=== PATIENT | female | born 1950 | race Caucasian/White ===

== ENCOUNTER → 2017-03-08 | Outpatient (CLI) | payer OTHER, MEDICAID ==
[~2017-03-08] MED LIST: ACETAZOLAMIDE250 M1 PO; ARICEPT 5 MG TAB5 MG PO; AZITHROMYCIN 2250 MG PO; CEFUROXIME250 MG PO; DUONEB 2.5-0.5 M3 ML INH; FOSINOPRIL 10 M10 M1 PO; HYDROCHLOROTH12.5 M1 PO; HYDROCODONE-AP1 EAC6 PO; HYDROXYCHLOROQ200 M1 PO; NITROFURANTOIN100 MG PO; OMEPRAZOLE20 M2 PO; PREDNISONE 10 M10 MG PO; PREDNISONE 20 M20 MG PO; PROAIR HFA8.5 GM INH; PROZAC20 MG PO; RISPERDAL 1 MG T1 MG PO; SINGULAIR 10 MG10 M1 PO
--- NOTE | 2017-03-15 12:51 | SLEEP ---
[address] [address] SLEEP STUDY REPORT Name: CAREY NELSON Room: [facility]#: [id number] Admission: 03/08/17 Attend Phys: Josh Saeed MD Discharge: Date of : 46 Report #: [id number] THIS REPORT FOR: //name// CC: BERTHA Saeed This study has been reviewed in its entirety by a board certified sleep specialist DATE OF SERVICE: 03/12/2017 REFERRING PHYSICIAN: Dr. Josh Saeed. INDICATION: The patient with known obstructive sleep apnea on the sleep study done on 12/10/2016 with apnea-hypopnea index of 31.6 and oxygen saturation ____. Also, the patient has history of COPD, chronic respiratory failure, on oxygen. TYPE OF STUDY: CPAP/BiPAP titration. METHOD: The following parameters were monitored: Frontal, central and occipital EEG; electro-oculogram; submentalis EMG; nasal and oral airflow; anterior tibialis EMG; body position and electrocardiogram. Additionally, thoracic and abdominal movements were recorded by inductance plethysmography. Oxygen saturation was monitored using pulse oximeter. The tracing was scored using 30-second epochs. Hypopneas were scored per the [employer] definition using the 4% desaturation criteria. SLEEP SUMMARY: Total recording time 445.4 minutes. Total sleep time 348.5 minutes. Sleep efficiency 78.2%. This was a PAP titration study. Initially, the patient was placed on CPAP, the patient did not tolerate the CPAP, she was changed to BiPAP and titrated on BiPAP pressure, slowly increasing between 8/5 cm of water to a final pressure of 19/12 cm of water. At this level of 19/12 cm of water, the patient slept for 153 minutes, and lateral REM sleep was captured at this level for 55 minutes. The apnea-hypopnea index was 7.2. The lowest O2 saturation recorded was 84%. It was noted that the patient, during the study, had low O2 saturation and oxygen was added during the titration to maintain the O2 saturation 90% and above. CARDIAC DATA: The average heart rate was 61.9 beats per minute, the highest rate was 86 beats per minute. PLMS STATISTICS: The PLMS index was 36 per hour; however, the PLMS arousal index was 2.6 [place] [address] SLEEP STUDY REPORT Name: CAREY NELSON Room: [facility]#: [id number] Admission: 03/08/17 Attend Phys: Josh Saeed MD Discharge: Date of : 46 Report #: [id number] RECOMMENDATIONS: 1. Trial of BiPAP therapy at a pressure of 19/12 cm of water with 3 L of oxygen let through the BiPAP machine during sleep. 2. Close clinical followup and data download. 3. Avoid sedatives, hypnotics, alcohol close to bedtime. <ELECTRONICALLY SIGNED> By: Itz Marion MD 03/15/17 1251 0920 [id number] Marion MD /nt
--- NOTE | 2017-03-31 07:16 | SLEEP ---
[address] [address] SLEEP STUDY REPORT Name: CAREY NELSON Room: [facility]#: [id number] Admission: 03/08/17 Attend Phys: Josh Saeed MD Discharge: Date of : 46 Report #: [id number] THIS REPORT FOR: //name// CC: BERTHA Saeed MD This study has been reviewed in its entirety by a board certified sleep specialist DATE OF SERVICE: 03/08/2017 ATTENDING PHYSICIAN: Josh Saeed MD. TYPE OF STUDY: Polysomnography. The patient is a 66-year-old female with a history of COPD. She is chronically on oxygen 3 liters nasal cannula, and the patient has difficulty falling in trying to sleep, evaluate for obstructive sleep apnea. Overnight polysomnography was performed. Total sleep time was 5 hours and 48 minutes. Sleep efficiency was 78%. N1 was 0. N2 was 83 minutes and then N3 was 83 minutes and then REM sleep was 150 minutes. The patient had 5 apneas and 65 hypopneas, 70 events were noted. Apnea-hypopnea index was 12 per hour sleep. No Shiv-Sarah respirations were noted. Mild O2 desaturation was noted. The average O2 was 90% on 3 liters. Pulse rate was in the 60s, and there were 209 PLMS. The PLMS arousal index was 2.6 per hour, which was within normal limits. Abnormalities suggest mild obstructive sleep apnea. This study appears somewhat improved from her previous study at [place] dated 12/10/2016. The patient had a higher apnea-hypopnea index at that time. Would consider empiric trial of 8 cm of CPAP with a full face mask with oxygen 3 liters bled into the system. Then, data download and follow up in a month after the patient on CPAP would be indicated. Would avoid alcohol and heavy sedation and would avoid driving while feeling drowsy. The patient already is on oxygen at home. <ELECTRONICALLY SIGNED> By: Georgia Singletary MD 03/31/17 0716 1023 1051Amartina Sinclair MD /nt
== END ==
LOC: M.SLEEPLAB 01:23
DX: G47.33 Obstructive sleep apnea (adult) (pediatric) (principal)

== ENCOUNTER 2019-08-26 21:35 | Inpatient (IN) | payer MEDICARE, MEDICAID ==
[~2019-08-26] VITALS: Ht 154.9 cm; Wt 92.5 kg
[~2019-08-26 21:35] MED LIST changes: +DENTAGEL56 GM MISCELL; +PEPCID20 MG PO
[2019-08-26 21:37] VITALS: BP 105/78
[2019-08-26] MEDS ORDERED: TYLENOL325 M1 PO (21:40)
[2019-08-26] MEDS ORDERED: ANTACID PO (21:41)
[2019-08-26] MEDS ORDERED: METOPROLOL SUCC50 MG (21:42)
[2019-08-26] MEDS ORDERED: B-12 DOTS500 MCG PO (21:42)
[2019-08-26] MEDS ORDERED: VITAMIN C500 M1 PO (21:43)
[2019-08-26] MEDS ORDERED: ZINC SULFATE220 MG PO (21:43)
[2019-08-26 22:00] LABS: ABSOLUTE EOSINOPHILS 0.2 thou/uL (0.0-0.7); ABSOLUTE LYMPHOCYTES 1.4 thou/uL (0.8-5.3); ABSOLUTE MONOCYTES 0.7 thou/uL (0.0-1.2); ABSOLUTE NEUTROPHILS 5.6 thou/uL (1.6-8.1); BASOPHILS 0.6 %; EOSINOPHILS 2.2 %; LYMPHOCYTES 18.1 %; MCH 21.9 pg (26.0-34.0); MCV 72.9 fL (80.0-100.0); MONOCYTES 8.9 %; MPV 7.4 fl. (7.2-11.1); NUCLEATED RBCS 0 /100WBC; PLATELET COUNT* 270 thou/uL (150-400); POLYS 70.2 %; RBC 3.16 mil/uL (4.20-5.00); RDW-CV 18.7 % (10.5-14.5); WBC 7.9 thou/uL (4.0-11.0)
[2019-08-26 22:02] LABS: HEMOGLOBIN 6.9 gm/dL (12.0-15.0)
[2019-08-26 22:08] LABS: CREATININE 0.9 mg/dL (0.6-1.3); POTASSIUM 4.6 mmol/L (3.5-5.1)
[2019-08-26 22:18] LABS: MAGNESIUM 2.2 mg/dL (1.8-2.4); TOTAL BILIRUBIN 0.2 mg/dL (<0.1-1.0); TOTAL PROTEIN 6.6 g/dL (6.4-8.2)
[2019-08-26 22:31] LABS: BE 5.4 mmol/L (-2 to +3)
[2019-08-26 22:35] LABS: pH 7.271 (7.340-7.450)
[2019-08-26 22:41] LABS: ANISOCYTOSIS 1+
[2019-08-26 22:42] LABS: LARGE PLATELETS OCCASIONAL; PLATELET ESTIMATE ADEQUATE
[2019-08-26 22:43] LABS: MICROCYTES 1+
[2019-08-26 22:44] LABS: HYPOCHROMASIA 1+
[2019-08-26 23:06] LABS: URINE BILIRUBIN NEGATIVE (Negative); URINE BLOOD 2+ (Negative); URINE CLARITY CLOUDY; URINE COLOR YELLOW; URINE GLUCOSE-RANDOM NEGATIVE (Negative); URINE KETONES NEGATIVE (Negative); URINE LEUKOCYTES-REFLEX 3+ (Negative); URINE NITRITE-REFLEX NEGATIVE (Negative); URINE PROTEIN 1+ (Negative); URINE SPECIFIC GRAVITY >= 1.030 (1.005-1.030); URINE UROBILINOGEN 0.2 E.U./dl (0.2-1.0)
[2019-08-26 23:07] LABS: BACTERIA-REFLEX >30 Many /HPF (None Seen); CASTS None Seen /LPF (None Seen); CRYSTALS None Seen /LPF (None Seen); MUCUS 4-6 Moderate strn/LPF (None Seen); SQUAMOUS 0-3 Few /LPF (0-3); URINE WBC-REFLEX >25 Many /HPF (0-5); WBC CLUMPS Moderate (None Seen)
[2019-08-27] VITALS (7 sets, daily range): BP systolic 120–152; BP diastolic 40–76
[2019-08-27 02:43] LABS: % SATURATION 2 % (20-39); IRON 11 ug/dL (50-175)
[2019-08-27 09:10] LABS: BE 2.3 mmol/L (-2 to +3); PO2 82.7 mmHg (75.0-100.0)
[2019-08-27 09:13] LABS: PCO2 82.6 mmHg (35.0-45.0); pH 7.201 (7.340-7.450)
[2019-08-27 09:55] LABS: HEMATOCRIT 25.7 % (37.0-47.0); HEMOGLOBIN 7.7 gm/dL (12.0-15.0)
--- NOTE | 2019-08-27 12:39 | EKG ---
[place] [address] ELECTROCARDIOGRAM REPORT Name: DANIELLENKACAREY Room: [address] ADM IN M.R.#: [id number] Admission: 08/27/19 Attend Phys: Grey Rivera, Discharge: Date of : 46 Date of Service: 08/26/198 Report #: [id number] THIS REPORT FOR: //name// [facility] ED Test Date: 2019-08-26 Test Time: 21:38:08 Pat Name: CAREY NELSON Department: Room: [facility] Gender: F Warpman: MARIA DEL ROSARIO : 1950 Requested By: Amy Stevenson Order Number: [id number] MD: Jan Kemp Measurements Intervals [place] Rate: 54 P: 36 PA: 174 QRS: 37 QRSD: 188 T: 28 QT: 467 QTc: 443 Interpretive Statements Sinus rhythm Baseline artifact Compared to ECG 08/29/2018 10:36:42 Sinus bradycardia no longer present Electronically Signed On 08-27-2019 12:39:51 CDT by Jan Kemp [email or web address] <ELECTRONICALLY SIGNED> By: Jan Kemp MD, FACC 08/27/19 1239 37 37 Jan Kemp MD, [facility] /EPI
[2019-08-28] VITALS: BP 119/41
[2019-08-28 04:00] VITALS: BP 127/53
[2019-08-28 05:10] LABS: HEMATOCRIT 25.6 % (37.0-47.0); MCV 74.2 fL (80.0-100.0); MPV 8.1 fl. (7.2-11.1); RBC 3.45 mil/uL (4.20-5.00); RDW-CV 19.7 % (10.5-14.5); WBC 7.4 thou/uL (4.0-11.0)
[2019-08-28 05:27] LABS: ALBUMIN 3.1 g/dL (3.4-5.0); CALCIUM 8.3 mg/dL (8.5-10.1); MAGNESIUM 2.1 mg/dL (1.8-2.4); POTASSIUM 4.2 mmol/L (3.5-5.1); TOTAL BILIRUBIN 0.4 mg/dL (<0.1-1.0); TOTAL PROTEIN 6.9 g/dL (6.4-8.2)
[2019-08-28 08:15] VITALS: BP 137/49
[2019-08-28 09:56] LABS: BE 6.3 mmol/L (-2 to +3); PO2 85.4 mmHg (75.0-100.0); pH 7.366 (7.340-7.450)
[2019-08-28 12:21] VITALS: BP 121/60
--- NOTE | 2019-08-28 15:06 | 2DMMODE ---
[place] [address] 2 D/M-MODE ECHOCARDIOGRAM Name: CAREY NELSON Room: [address] IN [place]#: [id number] Admission: 08/27/19 Attend Phys: Grey Rivera, Discharge: Date of : 46 Date of Service: 08/28/19 1506 Report #: [id number] THIS REPORT FOR: cc: Marino Byrd MD, Dennis R MD Blick, David R. MD [facility] ~ APPROVED REPORT Study performed: 08/28/2019 11:00:53 EXAM: Comprehensive 2D, Doppler, and color-flow Echocardiogram Patient Location: In-Patient Room #: [facility] Status: routine BSA: 1.90 HR: 57 bpm BP: 127/53 mmHg Rhythm: NSR Other Information Study Quality: Good Indications Congestive Heart Failure 2D Dimensions IVSd: 12.58 (7-11mm) LVOT Diam: 20.85 (18-24mm) LVDd: 56.98 mm PWd: 9.71 (7-11mm) Ascending Ao: 31.71 (22-36mm) LVDs: 31.40 (25-40mm) Aortic Root: 30.16 mm Volumes Left Atrial Volume (Systole) LA ESV Index: 49.60 mL/m2 Aortic Valve AoV Peak Tanmay.: 3.76 m/s AO Peak Gr.: 56.44 mmHg LVOT Max P.99 mmHg AO Mean Gr.: 35.61 mmHg LVOT Mean P.26 mmHg LVOT Max V: 1.66 m/s AO V2 VTI: 89.56 cm LVOT Mean V: 1.04 m/s EFRAIN (VTI): 1.54 cm2 LVOT V1 VTI: 40.48 cm AI [place]: 1.95 m/s2 [place] [address] 2 D/M-MODE ECHOCARDIOGRAM Name: CAREY NELSON Room: [address] [facility].#: [id number] Admission: 08/27/19 Attend Phys: Grey Rivera, Discharge: Date of : 46 Date of Service: 08/28/19 1506 Report #: [id number] AI PHT: 583.01 ms Mitral Valve E/A Ratio: 1.19 MV Decel. Time: 240.35 ms MV E Max Tanmay.: 1.56 m/s MV PHT: 69.70 ms MVA (PHT): 3.16 cm2 TDI E/Lateral E': 12.00 E/Medial E': 19.50 Medial E' Tanmay.: 0.08 m/s Lateral E' Tanmay.: 0.13 m/s Pulmonary Valve PV Peak Tanmay.: 1.18 m/s PV Peak Gr.: 5.56 mmHg Tricuspid Valve RAP Estimate: 5.00 mmHg TR Peak Gr.: 46.11 mmHg RVSP: 51.00 mmHg PA Pressure: 51.00 mmHg Left Ventricle The left ventricle is normal size. There is normal LV segmental wall motion. There is normal left ventricular wall thickness. Left ventricular systolic function is normal. The left ventricular ejection fraction is within the normal range. LVEF is 55-60%. Right Ventricle Right ventricle is dilated. The right ventricular systolic function is normal. Atria Left atrium is severely dilated. Right atrium is dilated. Aortic Valve Aortic valve is calcified. Mild aortic regurgitation. Severe aortic stenosis.. Mitral Valve There is mitral annular calcification. Trace mitral regurgitation. No evidence of mitral valve stenosis. Tricuspid Valve The tricuspid valve is normal in structure. Mild tricuspid regurgitation. estimated pa pressure 50 [place] [address] 2 D/M-MODE ECHOCARDIOGRAM Name: CAREY NELSON Room: [address]#: [id number] Admission: 08/27/19 Attend Phys: Grey Rivera, Discharge: Date of : 46 Date of Service: 08/28/19 1506 Report #: [id number] Pulmonic Valve The pulmonary valve is normal in structure. Trace pulmonic regurgitation. Great Vessels The aortic root is normal in size. IVC is normal in size and collapses >50% with inspiration. Pericardium There is no pericardial effusion. <Conclusion> LVEF is 55-60%. Left atrium is severely dilated. Severe aortic stenosis.. Mild tricuspid regurgitation. estimated pa pressure 50 mm Hg <ELECTRONICALLY SIGNED> By: Kendrick Knox MD, [facility] 08/28/19 1506 1506 1506 Kendrick Knox MD, FACC /INF
[2019-08-28 17:00] VITALS: BP 102/42
--- NOTE | 2019-08-28 17:10 | CON ---
[address] [address] CONSULTATION Name: CAREY NELSON Room: [address] IN M.R.#: [id number] Admission: 08/27/19 Attend Phys: Grey Rivera MD Discharge: Date of : 46 Report #: [id number] THIS REPORT FOR: //name// cc: Marino Byrd MD, Dennis R MD ~ THIS REPORT FOR: //name// CC: Marino Rivera DATE OF SERVICE: 08/28/2019 REQUESTING PHYSICIAN: Has been requested by Dr. Buitrago. INDICATION FOR CONSULTATION: [id number] hypercarbic respiratory failure. HISTORY OF PRESENT ILLNESS: The patient is a 69-year-old female, I have seen her during a previous admission in 2017. The patient has a long history of chronic hypercarbic respiratory failure and has had an acute component at times as well. The patient is a lifetime nonsmoker; however, she has had significant exposure to secondhand smoking and so therefore, there does appear to be an underlying component of COPD. In addition, the patient has a longstanding history of use of narcotics and she is overweight with a body mass index of 39 and has obesity hypoventilation syndrome as well, all of which are contributing to her hypercarbic respiratory failure. Back in 2017, I had a set up a Trilogy for her and had recommended that she use as a prison. The patient now reports that she used that only for a short period of time and did not like it and therefore discontinued use. The patient, however, does remain on oxygen, long-term. At other times, there have been attempts to set up with a BiPAP as well. She has had several sleep studies performed, which are in our records. She was also intolerant to CPAP and therefore set up with a BiPAP of 02/02. Earlier, the patient also says that she was intolerant to BiPAP and did not use it for a long period of time either. The patient is a resident of a long-term care facility. The patient is now admitted yesterday. She is able to provide only a limited history. She does report that she has had a significant increase in shortness of breath. There has been some cough as well. She does not report any increase in sputum production. There is no chest pain. She does not report upper respiratory complaints. She is not describing a runny nose or sore throat to me. There is no swelling of lower extremities. There is no calf pain. The patient does, however, have pain complaints which she reports as being at baseline. This does include a history of joint as well as back pain. The patient did have COVID-19 testing performed upon admission[place] [address] CONSULTATION Name: DANIELLENKACAREY ADRIÁN Room: [address] IN [facility]#: [id number] Admission: 08/27/19 Attend Phys: Grey Rivera MD Discharge: Date of : 46 Report #: [id number] well as PCR for COVID-19 came back negative. The patient is noted to have had significant anemia on admission, with hemoglobin down to 6.9. She has been evaluated by GI as well as Hematology. She has also had a unit of packed RBCs. Hemoglobin is now up to 8.0 with transfusion. The patient is not describing any abdominal complaints, but as above, she is a limited historian. I asked her 12 questions for review of systems, she answered with a negative for all other questions asked for review of systems and review of systems is therefore negative except as above with the limitation again that the patient is providing a limited history. PAST MEDICAL HISTORY: Chronic hypercarbic respiratory failure, the patient's baseline pCO2 is in the range of 56-58, obstructive sleep apnea, several sleep studies are in the records. Apnea-hypopnea index is variable on these studies. It does, however, appear to me that she has fairly significant obstructive sleep apnea, long-term oxygen use. We have previously set a Trilogy as above, the patient did not use prison. The patient is also being set up with BiPAP at one point, which she did not use prison. Obesity hypoventilation syndrome, chronic narcotic use, leading to hypercarbia, COPD secondary to secondhand exposure to cigarette smoke. There is a previous cardiac catheterization in 2019, which is unremarkable. There is a previous echocardiogram from 2017, which shows minor valvular lesions only. Rheumatoid arthritis, gastroesophageal reflux disease, depression, anxiety, kidney stones, hysterectomy, gallbladder surgery, tonsillectomy, right ankle surgery. I do not have any previous pulmonary function tests available. SOCIAL HISTORY: Lifetime nonsmoker; however, has had significant exposure to secondhand smoke. She has been on prescribed narcotics long-term; however, there is no known history of illegal drug use. No known history of heavy alcohol use. She is resident of a long-term care facility. FAMILY HISTORY: There are multiple family members who smoke and the patient previously told me that they has had significant exposure to secondhand smoke. CURRENT MEDICATIONS: List in R&V reviewed. HOME MEDICATIONS: List in R&V reviewed. ALLERGIES: THE PATIENT IS REPORTED TO BE ALLERGIC TO PENICILLIN WELL LEVAQUIN. She tolerates cephalosporins point without any problems. There is documented history of administration of cephalosporins without a reaction. She has received Zosyn in 2017 as well, not known to me as to whether her REPORTED HISTORY TO PENICILLINS is before or after she got Zosyn in 2017. PHYSICAL EXAMINATION: GENERAL: She is fully awake was on BiPAP overnight, now is down to 3 [place] [address] CONSULTATION Name: CAREY NELSON ADRIÁN Room: [address]#: [id number] Admission: 08/27/19 Attend Phys: Grey Rivera MD Discharge: Date of : 46 Report #: [id number] oxygen via nasal cannula. She is oxygenating in the mid 90s. Does not appear to be in any distress. She, however, is able to provide only a limited history. She did answer orientation questions correctly. Her body mass index is elevated to 38.6. VITAL SIGNS: Has a pulse of 60 and a blood pressure of 121/60, her respiratory rate is 16. She is afebrile with a temperature of 36.8. HEENT: Head is normocephalic and atraumatic. She does appear to have a narrow airway. NECK: Does not show raised JVP, asymmetry, mass or lymph nodes. CHEST: Symmetrical expansion on inspection and palpation. On auscultation, however, breath sounds are decreased on the right lung base. Expirations do appear to be prolonged. HEART: Regular. There is a 2-3/6 systolic murmur. ABDOMEN: Soft and nontender. EXTREMITIES: Lower extremities show no edema, no calf tenderness. SKIN: Dry and intact. NEUROLOGICAL: Moves all extremities bilaterally equally and spontaneously with no focal deficit identified. LABORATORY DATA: The patient had a CT of the abdomen and pelvis performed earlier today, reviewed the report. I also reviewed the lower chest films accompanying the CT. There is a partially visualized pleural effusion, which appears to be small in size. It could possibly have some loculations. There may be some atelectasis present as well; however, visualization is partial. The patient has had a chest x-ray performed on admission and today, there is a significant increase in opacification at the right lung base. The patient's arterial blood gases, which are consistent with mgyhh-pi-symgkug hypercarbic respiratory failure with a favorable response to BiPAP therapy are in [facility] reviewed. The patient's CBC as well as chemistries are in [facility], these are reviewed. Coagulation studies, which show D-dimer of only 0.39 in [facility], reviewed. Urinalysis in [facility] reviewed. Serology shows COVID-19 antigen as well as PCR negative. Note that she is on hydroxychloroquine, however. ASSESSMENT AND PLAN: 1. Dykco-ec-tvkpmku hypercarbic and hypoxemic respiratory failure. As I had previously recommended back in 2017, I feel that the patient would benefit from use of a Trilogy device prison. The patient has been intolerant of Trilogy in the past. If the patient is able to tolerate a Trilogy, then I do recommend setting one up before her discharge. The patient would also benefit from a BiPAP; however, I would expect the response to be less favorable then Trilogy. I do not feel that her respiratory failure can be controlled with a CPAP or with CPAP and oxygen alone. At this time, I would go ahead and switch her BiPAP over to average volume, assured pressure support mode, and will continue while asleep and p.r.n. 2. Right lower lobe infiltrate/atelectasis/pleural effusion. See discussion regarding the CT of the abdomen and pelvis as above. I feel that the [address] [address] CONSULTATION Name: CAREY NELSON Room: [address] IN [facility]#: [id number] Admission: 08/27/19 Attend Phys: Grey Rivera MD Discharge: Date of : 46 Report #: [id number] visualization of the right lower zone finding is partial on this CT and therefore, I will go ahead and proceed with a CT of the chest without contrast. At first glance, it appears to me that the pleural effusion is small and the worsening on the x-ray today is due to atelectasis. Therefore, pending further review with CT of the chest, I went ahead and ordered Mucomyst for her. We will reassess once the CT chest is performed. The patient remains on Zithromax as well as ceftriaxone. I also continued these, pending review of CT chest. We will obtain a sputum culture as well as nasal swab for methicillin-resistant Staphylococcus aureus. The patient is tested negative for COVID-19 antigen as well as COVID-19 PCR. The patient is noted to be on hydroxychloroquine, which can lead to a false negative test for COVID but the patient, although a limited historian, is not describing any symptoms consistent with COVID-19. 4. Chronic obstructive pulmonary disease exacerbation. She is a lifetime nonsmoker, but does appear to have a component of COPD. Secondary to secondhand cigarette smoke, we will continue with Solu-Medrol as well as DuoNeb. I added Brovana. In order to prevent bronchospasm with acetylcysteine, I went ahead and ordered an additional dose of Solu-Medrol now as well. 5. Obesity hypoventilation syndrome. This is also contributing to her chronic hypercarbic respiratory failure. Weight loss is strongly recommended. Down the line, the patient is a potential candidate for weight loss surgery. She may, however, need to use a Trilogy device regularly for a while in order to be stabilized enough to have consideration for weight loss surgery down the line. 6. 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 Narcotics are also contributing to her respiratory failure. 7. Murmur. Only minor abnormalities in the valves on previous echocardiogram. A repeat echocardiogram is pending at this time. 5. Gastroesophageal reflux disease/iron deficiency anemia. Dr. Melo is on the case. 6. Deep vein thrombosis prophylaxis. I recommend SCDs while in bed. 7. Mild fluid overload. She is on daily Lasix. We will follow along and watch her fluid status closely. Thanks for this consultation. <ELECTRONICALLY SIGNED> By: Hernando Mueller MD 08/28/19 1710 1302 [id number] Mueller MD /nt
[2019-08-28 20:00] VITALS: BP 115/76
[2019-08-29] VITALS: BP 116/50
[2019-08-29 04:00] VITALS: BP 129/59
[2019-08-29 04:45] LABS: HEMOGLOBIN 7.5 gm/dL (12.0-15.0)
[2019-08-29 04:47] LABS: HEMATOCRIT 24.4 % (37.0-47.0); MCHC 30.9 g/dL (28.0-37.0); MCV 74.2 fL (80.0-100.0); MPV 7.6 fl. (7.2-11.1); NUCLEATED RBCS 0 /100WBC; PLATELET COUNT* 240 thou/uL (150-400); RBC 3.28 mil/uL (4.20-5.00); RDW-CV 19.7 % (10.5-14.5)
[2019-08-29 04:53] LABS: ALBUMIN 2.8 g/dL (3.4-5.0); CALCIUM 8.3 mg/dL (8.5-10.1); CREATININE 0.9 mg/dL (0.6-1.3); MAGNESIUM 2.2 mg/dL (1.8-2.4); POTASSIUM 4.3 mmol/L (3.5-5.1); TOTAL BILIRUBIN 0.2 mg/dL (<0.1-1.0); TOTAL PROTEIN 6.2 g/dL (6.4-8.2)
[2019-08-29 05:46] LABS: ABSOLUTE EOSINOPHILS 0.1 thou/uL (0.0-0.7); ABSOLUTE LYMPHOCYTES 0.6 thou/uL (0.8-5.3); ABSOLUTE MONOCYTES 0.1 thou/uL (0.0-1.2); ABSOLUTE NEUTROPHILS 11.2 thou/uL (1.6-8.1); ANISOCYTOSIS 1+; PLATELET ESTIMATE ADEQUATE
[2019-08-29 05:47] LABS: HYPOCHROMASIA 1+; MICROCYTES 1+; POIKILOCYTOSIS 1+; POLYCHROMASIA Occasional
[2019-08-29 08:00] VITALS: BP 112/42
[2019-08-29 12:00] VITALS: BP 131/53
[2019-08-29 16:00] VITALS: BP 108/42
[2019-08-29 20:00] VITALS: BP 126/49
[2019-08-30 00:55] VITALS: BP 127/61
[2019-08-30 04:23] VITALS: BP 162/61
[2019-08-30 04:28] LABS: HEMATOCRIT 27.6 % (37.0-47.0); HEMOGLOBIN 8.5 gm/dL (12.0-15.0); MCH 22.8 pg (26.0-34.0); MCHC 30.7 g/dL (28.0-37.0); MCV 74.5 fL (80.0-100.0); MPV 7.7 fl. (7.2-11.1); RBC 3.71 mil/uL (4.20-5.00); RDW-CV 19.5 % (10.5-14.5); WBC 16.8 thou/uL (4.0-11.0)
[2019-08-30 04:40] LABS: CALCIUM 8.4 mg/dL (8.5-10.1); MAGNESIUM 2.1 mg/dL (1.8-2.4); POTASSIUM 4.3 mmol/L (3.5-5.1)
[2019-08-30 08:00] VITALS: BP 140/53
[2019-08-30 16:25] VITALS: BP 127/35
[2019-08-30 20:00] VITALS: BP 107/47
[2019-08-31 00:01] VITALS: BP 123/51
[2019-08-31 04:52] LABS: HEMATOCRIT 27.3 % (37.0-47.0); HEMOGLOBIN 8.1 gm/dL (12.0-15.0); MCH 22.6 pg (26.0-34.0); MCHC 29.9 g/dL (28.0-37.0); MCV 75.7 fL (80.0-100.0); MPV 7.9 fl. (7.2-11.1); RBC 3.6 mil/uL (4.20-5.00); RDW-CV 20.3 % (10.5-14.5)
[2019-08-31 04:57] LABS: ANION GAP < 0 mmol/L (7-16); BUN 27 mg/dL (7-18); CALCIUM 8.2 mg/dL (8.5-10.1); CHLORIDE 100 mmol/L (98-107); CO2 40 mmol/L (21-32); GLUCOSE 95 mg/dL (70-99); MAGNESIUM 2.1 mg/dL (1.8-2.4); POTASSIUM 4.3 mmol/L (3.5-5.1); SODIUM 139 mmol/L (136-145)
[2019-08-31 08:00] VITALS: BP 110/44
[2019-08-31] MEDS ORDERED: PREDNISONE 10 M10 MG PO (08:54)
[2019-08-31] MEDS ORDERED: PRINIVIL10 MG PO (08:54)
[2019-08-31] MEDS ORDERED: LEVAQUIN 500 M500 M3 PO (08:54)
[2019-08-31] MEDS ORDERED: PANTOPRAZOLE SO40 M1 PO (08:54)
[2019-08-31] MEDS ORDERED: BROVANA15 MCG/2 M INH (08:54)
[2019-08-31] MEDS ORDERED: IPRAT-ALBUT 0.5-3 ML INH (08:54)
[2019-08-31] MEDS ORDERED: CEFDINIR300 MG PO (09:00)
[2019-08-31 12:43] VITALS: BP 110/44
--- NOTE | 2019-09-01 14:43 | CON ---
[address] [address] CONSULTATION Name: CAREY NELSON Room: [address] IN [place].#: [id number] Admission: 08/27/19 Attend Phys: Grey Rivera MD Discharge: 08/31/19 Date of : 46 Report #: [id number] THIS REPORT FOR: //name// cc: Marino Byrd MD, Dennis R MD ~ THIS REPORT FOR: //name// CC: Marino Rivera DATE OF SERVICE: 08/30/2019 CARDIOLOGY CONSULTATION HISTORY OF PRESENT ILLNESS: The patient is a 69-year-old single white female who I was asked to see in the hospital today after she complained of being short of breath. The history is obtained from some old records as well as the patient's son who is present. The patient has a history of COPD. She was actually admitted here to [facility] in 2017 and sent to a half-way with oxygen. She was taken off oxygen about 8 months ago. She does not use inhalers or nebulizer. She is not very active at this time and uses a walker at the half-way. She denied any recent increased shortness of breath, cough, chest pain, palpitations or syncope. No history of heart murmur. However, the half-way noticed that her oxygen saturation levels had dropped and she was sent to [facility] 3 days ago and admitted. She was noted to be anemic and received a transfusion. Because of shortness of breath, Cardiology consultation requested. PAST MEDICAL HISTORY: She has had previous hysterectomy, cholecystectomy, ankle surgery. She has a history of anemia, but apparently previous colonoscopies were unsuccessful. She denied any recent vomiting of blood or blood in her stool. She has a history of memory loss. She has high blood pressure. No history of diabetes. CURRENT MEDICATIONS: At the half-way consist of the following: She is on Aricept, Pepcid, Prozac, metoprolol. She previously was on Monopril. ALLERGIES: SHE HAS AN ALLERGY TO PENICILLIN. FAMILY HISTORY: Her father had a heart attack. SOCIAL HISTORY: She is , lives in a half-way. No smoking or alcohol use. REVIEW OF SYSTEMS: She is overweight, being 5 feet 1 inch. She weighs 180 pounds. She does snore at night. No history of liver disease[place] [address] CONSULTATION Name: CAREY NELSON Room: [address]#: [id number] Admission: 08/27/19 Attend Phys: Grey Rivera MD Discharge: 08/31/19 Date of : 46 Report #: [id number] kidney stone before. No cancer. She has a history of depression, saw a psychiatrist in the past. No chronic skin condition. PHYSICAL EXAMINATION: GENERAL: Revealed an elderly obese female lying in bed. She appeared in no distress. VITAL SIGNS: Blood pressure 140/60, pulse 60. She is afebrile. HEENT: She was anicteric. Conjunctivae are pink. Mucous membranes moist. NECK: Veins difficult to assess due to obesity. CHEST: Clear to auscultation. CARDIOVASCULAR: Regular rate and rhythm, grade 2 systolic ejection murmur. ABDOMEN: Obese. EXTREMITIES: Had no edema. Dorsalis pedis pulse 1+ bilaterally. SKIN: Cool and dry. NEUROLOGIC: Nonfocal. LYMPH: No adenopathy. MUSCULOSKELETAL: No joint effusion. LABORATORY DATA: Her ECG on admission showed sinus bradycardia with no significant ST or T-wave changes. LABORATORY DATA: Her laboratory on admission showed cardiomegaly, mild vascular congestion, decreased inspiration, hiatal hernia. She had a CT scan of the chest using a PE protocol that showed atelectasis, coronary artery calcifications, cardiomegaly, large hiatal hernia. She had an echocardiogram performed 2 days ago that showed ejection fraction 60%, left atrial enlargement, evidence of severe aortic stenosis with a peak gradient across the aortic valve of 56 mmHg. The patient had a nuclear stress test a year ago in 07/2018 here at [facility] because of shortness of breath that showed ejection fraction of 65% with a small lateral defect on stress suggests a small area of ischemia. Her lab work, sodium 139, BUN 23, creatinine 1.0, albumin 2.8. Her white blood cell count 16.8, hemoglobin on admission was only 6.9, is now 8.5, MCV 74, percent saturation is only 2%, ferritin was only 5. IMPRESSION AND RECOMMENDATIONS: 1. Shortness of breath, suspect secondary to anemia and severe aortic stenosis. 2. Severe aortic stenosis. The patient does not appear to be a candidate for transcatheter aortic valve replacement because of her poor activity status. 3. Anemia. Possible angiodysplasia from aortic stenosis. 4. Hypertension. The patient has been on a beta serena. 5. Dementia. 6. Obesity. <ELECTRONICALLY SIGNED> By: Kendrick Knox MD, [facility] 09/01/19 1443 0923 [id number] Knox MD, FACC /nt
--- NOTE | 2019-09-04 15:15 | CON ---
[address] [address] CONSULTATION Name: CAREY NELSON Room: [address] IN M.R.#: [id number] Admission: 08/27/19 Attend Phys: Grey Rivera MD Discharge: 08/31/19 Date of : 46 Report #: [id number] THIS REPORT FOR: //name// cc: Marino Byrd MD, Dennis R MD ~ THIS REPORT FOR: //name// CC: MARINO Rivera MD DATE OF SERVICE: 08/27/2019 REFERRING PHYSICIAN: Grey Rivera MD. REASON FOR CONSULTATION: Anemia. IMPRESSION: 1. Recurrent iron deficiency anemia of uncertain etiology. 2. Severe hypercarbic hypoxemic respiratory failure requiring BiPAP. 3. Large hiatal hernia versus paraesophageal hernia noted on x-rays. 4. Dementia. 5. Generalized abdominal pain. RECOMMENDATIONS: 1. Unfortunately, the patient is an extremely poor candidate for any type of endoscopic evaluation. In addition, she has refused to undergo colonoscopy in the past and she will not take a prep. She has been referred to us last summer, but refused to take a prep at that time and she has never had a colonoscopy in the past and certainly would refuse one now. 2. Her hiatal hernia, possible paraesophageal hernia, could certainly contribute to her chronic gastrointestinal blood losses or could be Andrea erosions or even ulcers and at present, the patient is only taking famotidine at [facility] and rehabilitation. Usually with these situations it requires double dose proton pump inhibitor to heal and to maintain healing. 3. Since the patient is a poor candidate for endoscopy, we will start by having her undergo a noncontrast CT scan of the abdomen and pelvis tomorrow just to see if there is anything "obvious" within the colon that would be suggestive of cancer. Even if something is found on CT scan, she will likely refuse evaluation. 4. I will strongly consider pulmonary consultation to optimize her respiratory care, so that if she does improve, we could potentially do an EGD only if and when they feel it would safe for her to undergo propofol sedation. 5. I would also consider consult Hematology for iron infusions due to history of [place] [address] CONSULTATION Name: CAREY NELSON Room: [address] IN [facility].#: [id number] Admission: 08/27/19 Attend Phys: Grey Rivera MD Discharge: 08/31/19 Date of : 46 Report #: [id number] I have discussed these present plans with the patient and her son, Sotero Ortiz" Arlen and we will keep him in loop with regards to the same (at cell number ). HISTORY: The patient is a 69-year-old white female who was admitted to the hospital because of problem with increasing shortness of breath and difficulty breathing. She has severe hypercarbic hypoxemic respiratory failure, which is currently requiring BiPAP with considered amount of supplemental oxygen. We were asked to see her to evaluate for source of recurrent anemia. That is not something new to her as the patient was referred to us last summer for endoscopic evaluation and refused any type of evaluation. This has been discussed with her through her son as well and she has also refused to do it through with him as well. In any event, the patient is not the best of historians, so most of the history is obtained from the son. There has not been any history of any major issues referable to her upper or lower GI tract. She has never had any previous studies of her upper and lower GI tract in the past. ALLERGIES: LEVOFLOXACIN AND PENICILLINS. MEDICATIONS: In the [facility] include famotidine, B12 shots, metoprolol, ascorbic acid, zinc, hydroxychloroquine, Aricept, and Prozac. PAST MEDICAL AND SURGICAL HISTORY: Remarkable for severe COPD with hypercarbic hypoxemic respiratory failure with admissions related to the same. She also has history of rheumatoid arthritis, anxiety, depression. She has had cholecystectomy, hysterectomy, tonsillectomy, right ankle surgery. She does have underlying dementia as well. SOCIAL HISTORY: The patient does not smoke. I do not know whether she had previous history of smoking. PHYSICAL EXAMINATION: GENERAL: Revealed her to currently be on BiPAP. She is comfortable. CARDIOPULMONARY: Revealed a regular rate and rhythm with diminished breath sounds throughout. ABDOMEN: Soft and not tender. No rebound or guarding noted. LABORATORY DATA: Her laboratory tests from the revealed a white count of 7.9, hemoglobin 6.9, platelet count 270,000. MCV is 72.9 and RDW is 18.7. Her last hemoglobin in 08/2018 was 11.4 with an MCV of 88.8 and RDW 14.6. Her sodium is 141, potassium 4.6, chloride 103, bicarbonate is 36, her BUN 15, creatinine 0.9, total bilirubin 0.2, alkaline phosphatase 96, AST 16, ALT 19, albumin is 3.0. Her blood gas on admission revealed pH of 7.21, pCO2 of 74, pO2 of 130 and a bicarbonate of 33 on 3.5 liters. Today, August 26, her pH was 7.201, pCO2 of 82.6 and pO2 of 82.7 with a bicarbonate of 31.6 on [address] [place] [address] CONSULTATION Name: CAREY NELSONU Room: [address] IN M.R.#: [id number] Admission: 08/27/19 Attend Phys: Grey Rivera MD Discharge: 08/31/19 Date of : 46 Report #: [id number] DISCUSSION: At the present time, the patient is not a good candidate for any endoscopic evaluation. We will schedule her for a CT scan of the abdomen and pelvis to evaluate for any major issues and then make further recommendations thereafter. Likely she will just go back to the [facility] on b.i.d. proton pump inhibitor therapy for suspected Andrea erosions and/or ulcers within the upper GI tract related to a large hernia. <ELECTRONICALLY SIGNED> By: Vladimir Melo DO 09/04/19 1515 [id number] 1953Gnasima Melo DO /nt
== END 2019-08-31 15:46 | DRG 871 ==
LOC: M.ERS 21:35 → M.2W 08-27 00:27 → M.TBA-ER 08-27 00:27 → M.2W 08-27 02:17
PROVIDERS: Emergency Medicine; Internal Medicine; Internal Medicine Critical Care Medicine; ADMIT Internal Medicine; ATTEND Internal Medicine
PROC: 5A09357 Assistance with Respiratory Ventilation, Less than 24 Consecutive Hours, Continuous Positive Airway Pressure (ICD-10-PCS; principal; 2019-08-27)
PROC: 30233N1 Transfusion of Nonautologous Red Blood Cells into Peripheral Vein, Percutaneous Approach (ICD-10-PCS; principal; 2019-08-27)
PROC: 5A09357 Assistance with Respiratory Ventilation, Less than 24 Consecutive Hours, Continuous Positive Airway Pressure (ICD-10-PCS; 2019-08-28)
PROC: 5A09357 Assistance with Respiratory Ventilation, Less than 24 Consecutive Hours, Continuous Positive Airway Pressure (ICD-10-PCS; 2019-08-30)
DX: A41.9 Sepsis, unspecified organism (principal); J15.6 Pneumonia due to other Gram-negative bacteria; G93.41 Metabolic encephalopathy; J96.22 Acute and chronic respiratory failure with hypercapnia; J96.21 Acute and chronic respiratory failure with hypoxia; N39.0 Urinary tract infection, site not specified; J44.0 Chronic obstructive pulmonary disease with (acute) lower respiratory infection; J44.1 Chronic obstructive pulmonary disease with (acute) exacerbation; E66.2 Morbid (severe) obesity with alveolar hypoventilation; J98.11 Atelectasis; J90 Pleural effusion, not elsewhere classified; B96.89 Other specified bacterial agents as the cause of diseases classified elsewhere; M06.9 Rheumatoid arthritis, unspecified; F32.9 Major depressive disorder, single episode, unspecified; F41.9 Anxiety disorder, unspecified; F03.90 Unspecified dementia, unspecified severity, without behavioral disturbance, psychotic disturbance, mood disturbance, and anxiety; D50.9 Iron deficiency anemia, unspecified; K44.9 Diaphragmatic hernia without obstruction or gangrene; K25.9 Gastric ulcer, unspecified as acute or chronic, without hemorrhage or perforation; I35.0 Nonrheumatic aortic (valve) stenosis; I10 Essential (primary) hypertension; K21.9 Gastro-esophageal reflux disease without esophagitis; R65.20 Severe sepsis without septic shock; Z77.22 Contact with and (suspected) exposure to environmental tobacco smoke (acute) (chronic); Z20.828 Contact with and (suspected) exposure to other viral communicable diseases; Z90.49 Acquired absence of other specified parts of digestive tract; Z90.710 Acquired absence of both cervix and uterus; Z79.899 Other long term (current) drug therapy; Z88.1 Allergy status to other antibiotic agents; Z88.0 Allergy status to penicillin; Z68.38 Body mass index [BMI] 38.0-38.9, adult; E87.70 Fluid overload, unspecified

== ENCOUNTER 2020-03-25 13:56 | Inpatient (IN) | payer MEDICARE, MEDICAID ==
[~2020-03-25] VITALS: Ht 154.9 cm; Wt 74.8 kg
--- NOTE | ~2020-03-25 | PROC ---
[address] [address] PROCEDURE REPORT Name: PATRICK NELSONTULIO SAMPSON Room: [address] IN M.R.#: [id number] Admission: 03/25/20 Attend Phys: Kristal Whiting Discharge: Date of : 46 Report #: [id number] THIS REPORT FOR: cc: Marino Byrd MD, Dennis R MD ~ [facility],Medical Records Staff For GI report, please see the Provation report in Perceptive 7 content. By: [id number] Records Staff [facility] /FRIDA
[~2020-03-25 13:56] MED LIST changes: +ANTACID PO; +B-12 DOTS500 MCG PO; +BROVANA15 MCG/2 M INH; +CEFDINIR300 MG PO; +IPRAT-ALBUT 0.5-3 ML INH; +LEVAQUIN 500 M500 M3 PO; +METOPROLOL SUCC50 MG; +PANTOPRAZOLE SO40 M1 PO; +PRINIVIL10 MG PO; +TYLENOL325 M1 PO; +VITAMIN C500 M1 PO; +ZINC SULFATE220 MG PO
[2020-03-25 13:57] VITALS: BP 132/55
[2020-03-25] MEDS ORDERED: ARICEPT10 M1 PO ×2 (14:08→14:09)
[2020-03-25] MEDS ORDERED: PLAQUENIL200 MG PO (14:09)
[2020-03-25] MEDS ORDERED: LISINOPRIL10 MG PO (14:11)
[2020-03-25] MEDS ORDERED: ZOFRAN4 MG PO (14:11)
[2020-03-25] MEDS ORDERED: ACID CONTROLLER20 MG PO (14:11)
[2020-03-25] MEDS ORDERED: MELATONIN3 M1 PO (14:12)
[2020-03-25] MEDS ORDERED: PROZAC20 M1 PO (14:12)
[2020-03-25 14:13] LABS: ABSOLUTE EOSINOPHILS 0.1 thou/uL (0.0-0.7); ABSOLUTE LYMPHOCYTES 1.4 thou/uL (0.8-5.3); ABSOLUTE MONOCYTES 0.6 thou/uL (0.0-1.2); ABSOLUTE NEUTROPHILS 4.7 thou/uL (1.6-8.1); BASOPHILS 0.2 %; EOSINOPHILS 1.8 %; HEMATOCRIT 22.1 % (37.0-47.0); LYMPHOCYTES 20.2 %; MCH 21.6 pg (26.0-34.0); MCHC 29.5 g/dL (28.0-37.0); MCV 73.1 fL (80.0-100.0); MONOCYTES 8.2 %; MPV 6.9 fl. (7.2-11.1); NUCLEATED RBCS 0 /100WBC; PLATELET COUNT* 294 thou/uL (150-400); POLYS 69.6 %; RBC 3.03 mil/uL (4.20-5.00); RDW-CV 22.4 % (10.5-14.5); WBC 6.8 thou/uL (4.0-11.0)
[2020-03-25 14:15] LABS: HEMOGLOBIN 6.5 gm/dL (12.0-15.0)
[2020-03-25 14:25] LABS: CALCIUM 8.6 mg/dL (8.5-10.1); CREATININE 1.3 mg/dL (0.6-1.3); POTASSIUM 4.6 mmol/L (3.5-5.1)
[2020-03-25 14:26] LABS: APTT 22.9 Seconds (25.0-31.3); PROTIME 10.3 Seconds (9.20-11.50)
[2020-03-25 14:38] LABS: ALBUMIN 3.3 g/dL (3.4-5.0); CK-MB MASS 1.6 ng/mL (<0.5-3.6); MAGNESIUM 2.1 mg/dL (1.8-2.4); TOTAL BILIRUBIN 0.2 mg/dL (<0.1-1.0); TOTAL PROTEIN 6.8 g/dL (6.4-8.2)
--- NOTE | 2020-03-25 18:37 | EKG ---
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: FRIDA : 1950 Requested By: Nicola Olson Order Number: [id number] MD: Pedro Caro Measurements Intervals [place] Rate: 61 P: 18 ND: 195 QRS: 21 QRSD: 109 T: 95 QT: 447 QTc: 451 Interpretive Statements Sinus rhythm Consider left atrial enlargement Low voltage, extremity leads Compared to ECG 08/26/2019 21:38:08 Low QRS voltage now present No significant interval change Electronically Signed On 03-25-2020 18:37:16 PRE PRESS MANAGER by Pedro Caro [email or web address] <ELECTRONICALLY SIGNED> By: Pedro Caro MD, [facility] 03/25/20 1837 1401 1401 Pedro Caro MD, [facility] /EPI
[2020-03-25 18:47] VITALS: BP 98/38
[2020-03-25 20:22] LABS: ANISOCYTOSIS 2+; HYPOCHROMASIA 2+; PLATELET ESTIMATE ADEQUATE
[2020-03-25 20:24] LABS: OVALOCYTES Occasional
[2020-03-25 20:25] LABS: MICROCYTES 2+
[2020-03-25 22:48] VITALS: BP 101/39
[2020-03-25 23:30] VITALS: BP 96/42
[2020-03-25 23:55] VITALS: BP 96/42
[2020-03-25 23:55] LABS: HEMATOCRIT 26.2 % (37.0-47.0); HEMOGLOBIN 7.8 gm/dL (12.0-15.0); MCH 22.5 pg (26.0-34.0); MCHC 29.8 g/dL (28.0-37.0); MCV 75.6 fL (80.0-100.0); MPV 7.2 fl. (7.2-11.1); RBC 3.46 mil/uL (4.20-5.00); RDW-CV 25.9 % (10.5-14.5)
[2020-03-26] VITALS: BP 97/55
[2020-03-26 05:26] VITALS: BP 95/30
[2020-03-26 08:00] VITALS: BP 124/56
[2020-03-26 16:00] VITALS: BP 93/47
[2020-03-27] VITALS: BP 101/41
[2020-03-27 04:00] VITALS: BP 109/35
[2020-03-27 07:53] VITALS: BP 113/57
[2020-03-27] MEDS ORDERED: CARAFATE 1 GM TA1 G1 PO (09:01)
[2020-03-27] MEDS ORDERED: PROTONIX40 M2 PO (09:01)
[2020-03-27 09:15] LABS: ABSOLUTE EOSINOPHILS 0.1 thou/uL (0.0-0.7); ABSOLUTE MONOCYTES 0.5 thou/uL (0.0-1.2); ABSOLUTE NEUTROPHILS 7.4 thou/uL (1.6-8.1); BASOPHILS 0.2 %; EOSINOPHILS 1.2 %; HEMOGLOBIN 7.3 gm/dL (12.0-15.0); LYMPHOCYTES 11.5 %; MCH 23.2 pg (26.0-34.0); MCHC 30.3 g/dL (28.0-37.0); MCV 76.6 fL (80.0-100.0); MONOCYTES 5.1 %; MPV 7.3 fl. (7.2-11.1); NUCLEATED RBCS 0 /100WBC; PLATELET COUNT* 285 thou/uL (150-400); RBC 3.14 mil/uL (4.20-5.00); RDW-CV 30.2 % (10.5-14.5)
[2020-03-27 09:29] LABS: ALBUMIN 3.5 g/dL (3.4-5.0); CALCIUM 7.8 mg/dL (8.5-10.1); CREATININE 1.1 mg/dL (0.6-1.3); POTASSIUM 4.2 mmol/L (3.5-5.1); TOTAL BILIRUBIN 0.5 mg/dL (<0.1-1.0); TOTAL PROTEIN 6.7 g/dL (6.4-8.2)
[2020-03-27 09:43] LABS: HYPOCHROMASIA 2+; MICROCYTES 1+; PLATELET ESTIMATE ADEQUATE
[2020-03-27 09:44] LABS: ANISOCYTOSIS 1+; OVALOCYTES Occasional
[2020-03-27 11:51] VITALS: BP 115/49
== END 2020-03-27 14:30 | DRG 378 ==
LOC: M.ERS 13:56 → M.TBA-ER 14:42 → M.2W 14:42
PROVIDERS: Emergency Medicine Emergency Medical Services; ADMIT Internal Medicine; ATTEND Internal Medicine
PROC: 30233N1 Transfusion of Nonautologous Red Blood Cells into Peripheral Vein, Percutaneous Approach (ICD-10-PCS; principal; 2020-03-25)
PROC: 0DJ08ZZ Inspection of Upper Intestinal Tract, Via Natural or Artificial Opening Endoscopic (ICD-10-PCS; 2020-03-26)
DX: K25.4 Chronic or unspecified gastric ulcer with hemorrhage (principal); J98.11 Atelectasis; D62 Acute posthemorrhagic anemia; F32.9 Major depressive disorder, single episode, unspecified; F03.90 Unspecified dementia, unspecified severity, without behavioral disturbance, psychotic disturbance, mood disturbance, and anxiety; M06.9 Rheumatoid arthritis, unspecified; F41.9 Anxiety disorder, unspecified; K44.9 Diaphragmatic hernia without obstruction or gangrene; Z20.822 Contact with and (suspected) exposure to COVID-19; Z90.710 Acquired absence of both cervix and uterus; Z90.49 Acquired absence of other specified parts of digestive tract; Z79.899 Other long term (current) drug therapy; Z88.1 Allergy status to other antibiotic agents; Z88.0 Allergy status to penicillin

== ENCOUNTER → 2020-08-06 | Outpatient (CLI) | payer MEDICARE, MEDICAID ==
[~2020-08-06] MED LIST changes: +ACID CONTROLLER20 MG PO; +ARICEPT10 M1 PO; +ATIVAN1 M1 PO; +CARAFATE 1 GM TA1 G1 PO; +CEPHALEXIN500 MG PO; +HYDROCODON-ACE1 EAC7 PO; +IRON325 M1 PO; +LISINOPRIL10 MG PO; +MELATONIN3 M1 PO; +PLAQUENIL200 MG PO; +PROTONIX40 M2 PO; +PROZAC20 M1 PO; +VITAMIN C500 M2 PO; +ZOFRAN4 MG PO
== END ==
LOC: M.MRI 10:58
PROVIDERS: ATTEND Internal Medicine Geriatric Medicine
DX: S83.281A Other tear of lateral meniscus, current injury, right knee, initial encounter (principal); R52 Pain, unspecified; M17.11 Unilateral primary osteoarthritis, right knee; X58.XXXA Exposure to other specified factors, initial encounter; Y93.89 Activity, other specified; Y92.89 Other specified places as the place of occurrence of the external cause; Y99.8 Other external cause status

== ENCOUNTER 2020-08-07 17:30 | Emergency (ER) | payer MEDICARE, MEDICAID ==
[~2020-08-07] VITALS: Ht 154.9 cm; Wt 87.1 kg
[~2020-08-07 17:30] MED LIST changes: -ATIVAN1 M1 PO; -CEPHALEXIN500 MG PO; -HYDROCODON-ACE1 EAC7 PO; -IRON325 M1 PO; -VITAMIN C500 M2 PO
[2020-08-07 17:58] LABS: ABSOLUTE EOSINOPHILS 0.2 thou/uL (0.0-0.7); ABSOLUTE LYMPHOCYTES 1.5 thou/uL (0.8-5.3); ABSOLUTE MONOCYTES 0.7 thou/uL (0.0-1.2); ABSOLUTE NEUTROPHILS 4.5 thou/uL (1.6-8.1); BASOPHILS 0.3 %; EOSINOPHILS 2.7 %; HEMATOCRIT 34.7 % (37.0-47.0); HEMOGLOBIN 11.3 gm/dL (12.0-15.0); LYMPHOCYTES 21.8 %; MCH 29.4 pg (26.0-34.0); MCHC 32.7 g/dL (28.0-37.0); MCV 90.1 fL (80.0-100.0); MONOCYTES 9.9 %; MPV 7.7 fl. (7.2-11.1); NUCLEATED RBCS 0 /100WBC; PLATELET COUNT* 207 thou/uL (150-400); POLYS 65.3 %; RBC 3.86 mil/uL (4.20-5.00); RDW-CV 16.9 % (10.5-14.5); WBC 6.9 thou/uL (4.0-11.0)
[2020-08-07] MEDS ORDERED: IRON325 M1 PO (18:03)
[2020-08-07] MEDS ORDERED: VITAMIN C500 M2 PO (18:04)
[2020-08-07] MEDS ORDERED: ATIVAN1 M1 PO (18:04)
[2020-08-07 18:23] LABS: CALCIUM 8.2 mg/dL (8.5-10.1); CREATININE 1.2 mg/dL (0.6-1.3)
[2020-08-07 18:27] LABS: ALBUMIN 3.3 g/dL (3.4-5.0); TOTAL BILIRUBIN 0.2 mg/dL (<0.1-1.0); TOTAL PROTEIN 6.5 g/dL (6.4-8.2)
[2020-08-07 20:07] LABS: URINE BILIRUBIN NEGATIVE (Negative); URINE BLOOD 1+ (Negative); URINE CLARITY CLEAR; URINE COLOR YELLOW; URINE GLUCOSE-RANDOM NEGATIVE (Negative); URINE KETONES NEGATIVE (Negative); URINE LEUKOCYTES-REFLEX 1+ (Negative); URINE PROTEIN NEGATIVE (Negative); URINE UROBILINOGEN 0.2 E.U./dl (0.2-1.0)
[2020-08-07 20:10] LABS: URINE NITRITE-REFLEX POSITIVE (Negative)
[2020-08-07 20:17] LABS: BACTERIA-REFLEX 1-9 Few /HPF (None Seen); CASTS None Seen /LPF (None Seen); CRYSTALS None Seen /LPF (None Seen); SQUAMOUS >10 Many /LPF (0-3); URINE RBC 0-2 Rare /HPF (0-2); URINE WBC-REFLEX 6-15 Few /HPF (0-5)
[2020-08-07] MEDS ORDERED: CEPHALEXIN500 MG PO (20:28)
[2020-08-07] MEDS ORDERED: HYDROCODON-ACE1 EAC7 PO ×2 (20:28→20:32)
[2020-08-07 21:00] VITALS: BP 127/92
--- NOTE | 2020-08-08 14:33 | EKG ---
[place] [address] ELECTROCARDIOGRAM REPORT Name: PATRICK NELSONGY ADRIÁN Room: [facility]#: [id number] Admission: 08/07/20 Attend Phys: Discharge: 08/07/20 Date of : 46 Date of Service: 08/07/20 1743 Report #: [id number] THIS REPORT FOR: //name// [facility] ED Test Date: 2020-08-07 Test Time: 17:43:56 Pat Name: CAREY NELSON Department: Room: Gender: F Intervention Manager: MIKIE : 1950 Requested By: Inocencio Hughes Order Number: [id number] MD: Pedro Caro Measurements Intervals [place] Rate: 63 P: 55 WV: 179 QRS: 67 QRSD: 93 T: 62 QT: 428 QTc: 439 Interpretive Statements Sinus rhythm Borderline low voltage, extremity leads Compared to ECG 03/25/2020 14:01:04 No significant changes Electronically Signed On 08-08-2020 14:33:39 CDT by Pedro Caro [email or web address] <ELECTRONICALLY SIGNED> By: Pedro Caro MD, [facility] 08/08/20 1433 1743 1743 Pedro Caro MD, [facility] /EPI
== END 2020-08-07 21:00 | disposition home or self-care (01) ==
LOC: M.ERS 17:30
PROVIDERS: Family Medicine
DX: S16.1XXA Strain of muscle, fascia and tendon at neck level, initial encounter (principal); N20.1 Calculus of ureter; N39.0 Urinary tract infection, site not specified; R07.81 Pleurodynia; X58.XXXA Exposure to other specified factors, initial encounter; Y93.89 Activity, other specified; Y92.89 Other specified places as the place of occurrence of the external cause; Y99.8 Other external cause status; Z88.1 Allergy status to other antibiotic agents; Z88.0 Allergy status to penicillin; Z79.2 Long term (current) use of antibiotics; Z79.1 Long term (current) use of non-steroidal anti-inflammatories (NSAID); Z79.899 Other long term (current) drug therapy; Z90.710 Acquired absence of both cervix and uterus

== ENCOUNTER → 2020-09-03 | Outpatient (CLI) | payer MEDICARE, MEDICAID ==
[~2020-09-03] MED LIST changes: +ATIVAN1 M1 PO; +CEPHALEXIN500 MG PO; +HYDROCODON-ACE1 EAC7 PO; +IRON325 M1 PO; +VITAMIN C500 M2 PO
--- NOTE | 2020-09-03 13:27 | EKG ---
[place] [address] ELECTROCARDIOGRAM REPORT Name: CAREY NELSONU Room: [facility]#: [id number] Admission: 09/03/20 Attend Phys: Perdo Akbar MD Discharge: Date of : 46 Date of Service: 09/03/20 1209 Report #: [id number] THIS REPORT FOR: //name// [facility] Test Date: 2020-09-03 Test Time: 12:09:51 Pat Name: CAREY NELSON Department: Room: Gender: F Photographic Process Worker: : 1950 Requested By: Pedro Akbar Order Number: [id number] MD: Jan Kemp Measurements Intervals [place] Rate: 50 P: 54 NM: 189 QRS: 95 QRSD: 89 T: 60 QT: 461 QTc: 421 Interpretive Statements Sinus rhythm Right axis deviation Compared to ECG 08/07/2020 17:43:56 Right-axis deviation now present Electronically Signed On 09-03-2020 13:27:28 CDT by Jan Kemp [email or web address] <ELECTRONICALLY SIGNED> By: Jan Kemp MD, FAC 09/03/20 1327 1209 1209 Jan Kemp MD, [facility] /EPI
== END ==
LOC: M.CRD 11:48
PROVIDERS: ATTEND Urology
DX: N20.1 Calculus of ureter (principal)

== ENCOUNTER → 2020-09-06 | Outpatient (CLI) | payer MEDICARE, MEDICAID | LOC: M.CT 14:12 | PROVIDERS: ATTEND Urology | DX: N20.2 Calculus of kidney with calculus of ureter (principal); N13.39 Other hydronephrosis; N13.4 Hydroureter; N13.5 Crossing vessel and stricture of ureter without hydronephrosis; Z90.49 Acquired absence of other specified parts of digestive tract ==